=== PATIENT | male | born 1965 | race Caucasian/White ===

== ENCOUNTER → 2018-04-11 16:22 | Outpatient (CLI) | payer OTHER, SELFPAY | PROVIDERS: Family Provider Family Medicine; PCP Family Medicine; Visit Provider Psychiatry & Neurology Neurology | DX: G47.10 Hypersomnia, unspecified (principal); G47.419 Narcolepsy without cataplexy | CPT/HCPCS: 36415 ==

== ENCOUNTER → 2020-10-26 20:00 | Outpatient (CLI) | payer OTHER, SELFPAY | PROVIDERS: PCP Family Medicine; Referring Provider Internal Medicine Critical Care Medicine; Visit Provider Internal Medicine Critical Care Medicine | DX: G47.33 Obstructive sleep apnea (adult) (pediatric) (principal) | CPT/HCPCS: 95811 ==

== ENCOUNTER → 2022-03-08 | Outpatient (CLI) | payer OTHER, SELFPAY ==
--- NOTE | 2022-03-08 13:45 | ECHOCS_ITS ---
Reason For Study: CHF Procedure This was a 2D Doppler, Color Flow transthoracic echocardiogram. The study was technically difficult. Exam performed in department. Left Ventricle Left ventricular systolic function is normal. The estimated ejection fraction is 65 %. No evidence for diastolic dysfunction. No regional wall motion abnormalities noted. Right Ventricle Normal RV size. Normal systolic function. Atria The left atrium is moderately enlarged. Normal right atrium. No doppler evidence for ASD. Mitral Valve There is no mitral annular calcification. Normal mitral valve. Trivial mitral valve insufficiency. Tricuspid Valve Normal tricuspid valve. Trivial tricuspid valve insufficiency. Unable to estimate RV systolic pressure/pulmonary artery pressure due to technically difficult study. Aortic Valve Trisinus/trileaflet aortic valve. Normal aortic valve. Pulmonic Valve The pulmonic valve is not well visualized. Great Vessels The aortic root is not well visualized. Pericardium/Pleural No pericardial effusion. MMode/2D Measurements & Calculations LAV(MOD-sp4): 93.2 ml LVAd ap4: 32.1 cm2 SV(MOD-sp4): 74.7 ml LVLd ap4: 8.2 cm EDV(MOD-sp4): 101.4 ml EDV(sp4-el): 107.5 ml LVAs ap4: 13.8 cm2 LVLs ap4: 6.3 cm ESV(MOD-sp4): 26.8 ml ESV(sp4-el): 25.6 ml EF(MOD-sp4): 73.6 % EF(sp4-el): 76.2 % SV(sp4-el): 81.9 ml LA A4 area: 29.0 cm2 LA dimension(2D): 5.6 cm RA A4 area: 21.6 cm2 Time Measurements MV dec time: 0.15 sec Doppler Measurements & Calculations MV E max rickey: 85.4 cm/sec MV V2 max: 92.6 cm/sec MV dec slope: 607.0 cm/sec2 MV A max rickey: 96.8 cm/sec MV max P.4 mmHg MV E/A: 0.88 MV V2 mean: 45.1 cm/sec MV mean P.1 mmHg MV V2 VTI: 42.2 cm Ao V2 max: 139.8 cm/sec LV V1 max: 115.9 cm/sec PA V2 max: 102.8 cm/sec Ao max P.8 mmHg LV V1 max P.4 mmHg PA V2 mean: 72.0 cm/sec LV V1 mean P.8 mmHg LV V1 mean: 76.8 cm/sec LV V1 VTI: 28.1 cm ECHO/Echo Complete W/ Contrast Interpretation Summary The study was technically difficult. Left ventricular systolic function is normal. The estimated ejection fraction is 65 %. The left atrium is moderately enlarged. Trivial mitral valve insufficiency. Trivial tricuspid valve insufficiency. Unable to estimate RV systolic pressure/pulmonary artery pressure due to techni tyler difficult study. No evidence for diastolic dysfunction. Ordering Physician: Dae Angulo Referring Physician: Dae Angulo Performed By: Hope Pinon RCS
== END | disposition home or self-care (01) ==
LOC: CVS 13:43
PROVIDERS: PCP Family Medicine; Referring Provider Internal Medicine Critical Care Medicine; Visit Provider Internal Medicine Critical Care Medicine
DX: G47.31 Primary central sleep apnea (principal)
CPT/HCPCS: 93306; C8929

== ENCOUNTER → 2022-03-15 | Outpatient (CLI) | payer OTHER, SELFPAY | END | disposition home or self-care (01) | LOC: SL 22:28 | PROVIDERS: PCP Family Medicine; Visit Provider Internal Medicine Critical Care Medicine | DX: G47.31 Primary central sleep apnea (principal) | CPT/HCPCS: 95811 ==

== ENCOUNTER → 2022-04-18 | Outpatient (CLI) | payer OTHER, SELFPAY ==
[2022-04-18 18:26] LABS: Creatinine, Serum 1.18 mg/dL (0.70-1.30); EST Glomerular Filtration Rate 67 mL/min (>60); Est Glom Filt Rate - Afr Amer 81 mL/min (>60)
== END | disposition home or self-care (01) ==
LOC: LAB 17:03
PROVIDERS: PCP Family Medicine; Visit Provider Physician Assistant
DX: R22.31 Localized swelling, mass and lump, right upper limb (principal)
CPT/HCPCS: 36415; 82565

== ENCOUNTER → 2022-05-11 | Outpatient (CLI) | payer OTHER, SELFPAY ==
--- NOTE | 2022-05-11 08:23 | EKG12_ITS ---
Test Reason : PREOP Blood Pressure : / mmHG Vent. Rate : 047 BPM Atrial Rate : 047 BPM P-R Int : 146 ms QRS Dur : 084 ms QT Int : 458 ms P-R-T Axes : 036 -08 015 degrees QTc Int : 405 ms Sinus bradycardia Otherwise normal ECG Confirmed by AYO CARBALLO, LAINE ([id number]), video tape editor JACQUELYN BYNUM ([id number]) on 05/12/2022 9:10:34 AM Referred By: ADRIANA MITCHELL Confirmed By:LAINE ROLLINS MD
[2022-05-11 09:14] LABS: Hematocrit 43.9 % (40-54); Hemoglobin 14.6 g/dL (13.0-16.5); Mean Corp Hgb Conc 33.3 g/dL (32-36); Mean Corpuscular Hgb 29.9 pg (27.0-32.0); Platelet Count 154 K/mm3 (150-450); RBC Distribution Width SD 42.5 fl (35.1-43.9); Red Blood Count 4.88 M/mm3 (4.6-6.2); White Blood Count 6.6 K/mm3 (4.4-11.0)
[2022-05-11 09:59] LABS: Anion Gap 5 (5-15); BUN 20 mg/dL (7-18); BUN/Creat Ratio 18.9 RATIO (10-20); Calcium,Total 9.1 mg/dL (8.5-10.1); Chloride 109 mmol/L (98-107); Creatinine, Serum 1.06 mg/dL (0.70-1.30); EST Glomerular Filtration Rate 76 mL/min (>60); Est Glom Filt Rate - Afr Amer 92 mL/min (>60); Glucose 120 mg/dL (74-106); Potassium 3.8 mmol/L (3.5-5.1); Sodium Level 143 mmol/L (136-145)
== END | disposition home or self-care (01) ==
PROVIDERS: PCP Family Medicine; Visit Provider Orthopaedic Surgery
DX: Z01.810 Encounter for preprocedural cardiovascular examination (principal); Z01.818 Encounter for other preprocedural examination; Z11.59 Encounter for screening for other viral diseases
CPT/HCPCS: 36415; 80048; 85027; 87426; 93005; C9803

== ENCOUNTER → 2022-05-13 | Outpatient (CLI) | payer OTHER, SELFPAY ==
--- NOTE | 2022-05-13 10:00 | MASS_PTH ---
PATIENT: MORE WILLOUGHBY LOC: [facility] U#:[id number] AGE/SX: 57/M ROOM: RE05/13/[address]: Dr. Isak Shepherd MD : [id number] BED: DIS: 05/13/2022 SPEC #: [id number] RECD: 05/13/22 14:44 STATUS: MERYL REHusam #: [id number] YESY: 05/13/22 10:[address]: Isak Shepherd DEPT: SURGICAL PATHOLOGY RECD BY: Nanette Cameron ENTERED: 05/16/22 09:09 SP TYPE: Mass OTHR DR: Dr. Oscar Sena MD [facility] Tissues: Forearm, NOS Procedures: Surgery Specimen Level III HEADER OPERATION: Mass excision right forearm PRE-OP DIAGNOSIS: Localized swelling, mass, lump, right upper limb TISSUE SUBMITTED: Right forearm mass MICROSCOPIC DIAGNOSIS Right forearm mass, excision: Mature adipose tissue consistent with lipoma. AM:adair 05/17/2022 MICROSCOPIC DESCRIPTION Slides are reviewed. GROSS DESCRIPTION Received in fixative is one container labeled with the patient's name and designated right forearm mass. The specimen consists of a piece of adipose tissue measuring 1.5 x 1 x 0.2 cm. A piece of skin is noted at one edge measuring 0.5 x 0.1 cm. The specimen is bisected and submitted entirely in one cassette. / SJ:rg 05/16/2022 TC:1 CPT: 58817
== END | disposition home or self-care (01) ==
LOC: LABSPEC 14:46
PROVIDERS: PCP Family Medicine; Referring Provider Orthopaedic Surgery; Visit Provider Orthopaedic Surgery
DX: R22.31 Localized swelling, mass and lump, right upper limb (principal)
CPT/HCPCS: 88304; 88305

== ENCOUNTER → 2023-03-06 | Outpatient (CLI) | payer OTHER, SELFPAY | END | disposition home or self-care (01) | LOC: SL 20:16 | PROVIDERS: PCP Family Medicine; Referring Provider Psychiatry & Neurology Sleep Medicine; Visit Provider Psychiatry & Neurology Sleep Medicine | DX: G47.39 Other sleep apnea (principal); G47.00 Insomnia, unspecified | CPT/HCPCS: 95811 ==